=== PATIENT | female | born 1950 | race Caucasian/White ===

== ENCOUNTER 2024-11-04 10:33 | Observation (INO) ==
--- NOTE | 2024-11-04 10:45 | Emergency Department Note ---
HPI - General Adult General Chief complaint: Altered Mental Status Stated complaint: ALTERED MENTAL STATUS Time Seen by Provider: 11/04/24 10:38 Source: patient Mode of arrival: walk-in Limitations: no limitations History of Present Illness HPI narrative: This is a 74 year old female patient that presents to the ER with c/o per EMS patients family called them because when she got to the patients house she was confused. Per EMS when they got to the patient she was A&O. Patient denies any chest pain, SOB, back pain, abdominal pain, numbness, tingling, weakness, speech difficulties, visual difficulties or N/V/D. Patient c/o headache in the back of her head that radiates to her back of her neck Location: Reports head Radiation: Reports neck Severity: mild Quality: Reports aching Pain Consistency: Reports constant Relieving factors: Reports none Exacerbating factors: Reports none Associated symptoms: Reports confusion Treatments prior to arrival: Reports none Related Data Allergies Allergy/AdvReac Type Severity Reaction Status Date / Time Antifungal - Imidazole Allergy Verified 11/04/24 10:48 levofloxacin (From Levaquin) Allergy Verified 11/04/24 10:48 meloxicam Allergy Verified 11/04/24 10:41 meperidine (From Demerol) Allergy Hallucinati Verified 11/04/24 10:48 ng naproxen (From Aleve) Allergy Vomiting Verified 11/04/24 10:48 Review of Systems Status of ROS 10 or more systems reviewed and unremark able except as noted in history and below Constitutional Denies: fever, chills, change in weight, fatigue, malaise, night sweats or change in sleep pattern Eyes Denies: change in vision, blurry vision, blind spots, light sensitivity, eye discomfort, eye discharge or dry eyes Ears, nose, mouth, and throat Reports: neck pain and dry mouth; Denies: throat pain, throat swelling, difficulty swallowing, hoarseness, mouth pain, swelling of lips/tongue, bad breath, ear pain, ear discharge, change in hearing, tinnitus, vertigo, nasal discharge, nasal congestion, nose bleeds or post nasal drip Cardiovascular Denies: chest pain, palpitations, edema, swelling of feet/ankles, lightheadedness, shortness of breath with exertion or shortness of breath when lying down Respiratory Denies: shortness of breath, cough, wheezing, stridor, pain on inspiration or change in phlegm color Gastrointestinal Denies: abdominal pain, nausea, vomiting, coffee grounds in vomit, heartburn, diarrhea, constipation or bloating Genitourinary Denies: painful urination, urinary frequency, urinary urgency, urinary incontinence or blood in urine Musculoskeletal Reports: neck pain and extremity pain (hx of neuropathy); Denies: back pain, extremity swelling, joint pain or limited range of motion Integumentary/Breast Denies: rash, itching, redness, skin pain, skin tenderness or skin swelling Neurological Reports: headache and confusion; Denies: numbness in extremities, weakness in extremities, lack of coordination, dizziness, vertigo, behavioral changes, slurred speech, difficulty communicating thoughts, seizure-like activity, involuntary movements or other Psychiatric Denies: anxiety, mood swings, panic attacks, change in sleep pattern, hopelessness or loss of interest Endocrine Denies: excessive urination, excessive thirst, fatigue, cold intolerance, excessive sweating, flushing or heat intolerance Allergic/Immunologic Denies: hives, throat swelling, tongue swelling, facial swelling or wheezing PFSH PFSH Medical History (Updated 11/04/24 @ 10:45 by Almita Diaz RN) COVID Thyroid disorder HLD (hyperlipidemia) Breast cancer Surgical History (Updated 11/04/24 @ 10:45 by Almita Diaz RN) History of cholecystectomy History of bladder surgery History of bone marrow biopsy History of phacoemulsification of cataract with intraocular lens implantation H/O breast biopsy History of back surgery Hx of appendectomy History of hysterectomy History of tonsillectomy Exam Constitutional: normal general appearance and no apparent distress Vital Signs - 24 hr 11/04/24 10:33 Temperature 98.9 F Pulse Rate 100 H Respiratory Rate 16 Blood Pressure 160/70 Pulse Oximetry 97 Oxygen Delivery Me thod Room Air HENMT: normocephalic, head/scalp atraumatic, hearing grossly normal bilaterally, external ears normal, EACs normal, nasal mucous membranes normal, external nose normal, oral mucous membranes normal and oropharynx normal Eyes: PERRL, EOMs intact bilaterally, conjunctivae normal, no scleral icterus and no papilledema Neck/C-Spine: visual inspection normal, trachea midline, cervical spine nontender, cervical full ROM noted, supple, no meningeal signs and thyroid normal Lymph: no lymphadenopathy noted Chest: inspection of chest normal Respiratory: breath sounds equal bilaterally, normal respiratory effort, clear to auscultation bilaterally, no wheezes, no rales, no retractions, no use of accessory muscles and chest percussion normal Cardiovascular: normal heart rate noted, regular rhythm noted, no gallop, no rub, no murmur, no JVD, no clicks, peripheral pulses 2+ throughout, no bruits noted and no additional abnormal heart sounds Gastrointestinal: abdomen normal to inspection, abdomen soft to palpation, nontender to palpation, nontender to percussion, nondistended, normoactive bowel sounds, no hepatosplenomegaly, no masses, no pulsatile mass, no ascites and no hernia Genitourinary: no CVA tenderness Back/Pelvis: spine normal to inspection Extremities: normal to inspection, normal to palpation, no tenderness, full ROM, no joint enlargement and no deformity Neurology: media relations intern II-XII intact, no movement abnormality noted, no focal motor deficit noted, no sensory deficits noted, deep tendon reflexes 2+ bilaterally, gait normal, speech normal, coordination normal, no pronator drift noted, no fasciculations noted and GCS calculation - A&Ox name, place and month confused to year Psychiatry: mental status grossly normal, orientation abnormal, thought process normal, cooperative, affect normal, psychomotor activity normal and memory abnormal A&Ox name, place and month confused to year Skin: skin color normal Course Course Hospital Course: 1156: VSS, no s/s of acute distress noted. Due to patient had witnessed AMS by family earlier will admit patient to the medical floor for further evaluation and treatment Vital Signs Vital signs: Vital Signs Temperature 98.9 F 11/04/24 10:33 Pulse Rate 100 H 11/04/24 10:33 Respiratory Rate 16 11/04/24 10:33 Blood Pressure 160/70 11/04/24 10:33 Pulse Oximetry 97 11/04/24 10:33 Oxygen Delivery Method Room Air 11/04/24 10:33 Temperature 98.9 F 11/04/24 10:33 Pulse Rate 100 H 11/04/24 10:33 Respiratory Rate 16 11/04/24 10:33 Blood Pressure 160/70 11/04/24 10:33 Pulse Oximetry 97 11/04/24 10:33 Oxygen Delivery Method Room Air 11/04/24 10:33 Medical Decision Making Differential Diagnosis Differential Diagnosis: TIA, drug intolerance, viral illness Medical Records Medical records reviewed: Yes I reviewed the patient's medical records Lab Data Lab results reviewed: Yes I reviewed the patient's lab results Labs: Lab Results 11/04/24 Range/Units 11:30 WBC 5.9 (4.3-9.3) K/uL RBC 3.3 L (4.00-5.50) M/uL Hgb 10.6 L (12.5-15.8) gm/dL Hct 31.9 L (35.9-46.7) % MCV 98.2 H (81.0-93.7) fl MCH 32.7 H (27.6-32.2) pg MCHC 33.3 (33.1-35.3) g/dl RDW 16.0 H (11.4-14.2) % Plt Count 175 (152-353) K/uL MPV 7.1 (6.9-10.8) fl Gran % 66.7 (47.8-71.3) % Lymph % (Auto) 10.9 L (20.0-43.0) % [place] % (Auto) 19.6 H (3.6-9.8) % Eos % (Auto) 2.3 (0.4-2.8) % Baso % (Auto) 0.5 (0.1-0.85) Lymph # (Auto) 0.6 L (1.1-3.1) [place] # (Auto) 1.2 (1.1-3.1) Eos # (Auto) 0.1 (0.0-0.2) Baso # (Auto) 0.0 (0.0-0.1) Absolute Gran (auto) 3.9 (2.3-6.0) Sodium 135 L (136-145) mmol/L Potassium 5.5 H (3.6-5.2) mmol/L Chloride 100.0 (98-107) mmol/L Carbon Dioxide 25 (21-32) mmol/L Anion Gap 10.0 (4-14) mEq/L BUN 23 H (7-18) mg/dL Creatinine 1.1 (0.6-1.3) mg/dL Estimated GFR 53.1 (>59.9) Glucose 79 (70-110) mg/dL Calcium 9.5 (8.5-10.1) mg/dL Total Bilirubin 0.42 (0.0-1.0) mg/dL AST 16 (15-37) U/L ALT 17 L (30-65) U/L Alkaline Phosphatase 112 (50-136) U/L Troponin I High Sens <4.00 L (4.0-60.4) ng/L Total Protein 7.2 (6.4-8.2) g/dL Albumin 4.0 (3.4-5.0) g/dL Imaging Data CT scan - head: Attestation: I have reviewed the pertinent imaging results. ECG Data Attestation: I have reviewed the pertinent ECG results. Discharge Plan Discharge Patient Disposition: Admitted As Observation Condition: Stable Clinical Impression: Altered mental status, TIA (transient ischemic attack) Time of Disposition: 11:58
[2024-11-04 11:41] LABS: Basophils%(Percent) Auto 0.5 (0.1-0.85); Eosinophils#(Absolute)Auto 0.1 (0.0-0.2); Eosinophils%(Percent) Auto 2.3 % (0.4-2.8); Granulocytes % - Auto 66.7 % (47.8-71.3); Granulocytes#(Absolute)- Auto 3.9 (2.3-6.0); Hematocrit 31.9 % (35.9-46.7); Mean Corpuscular Volume 98.2 fl (81.0-93.7); Monocytes #(Absolute)- Auto 1.2 (1.1-3.1); Monocytes %(Percent)- Auto 19.6 % (3.6-9.8); Platelet Count 175 K/uL (152-353); White Blood Count 5.9 K/uL (4.3-9.3)
[2024-11-04 11:47] LABS: Potassium 5.5 mmol/L (3.6-5.2)
[2024-11-04] MEDS: ASPIRIN 81 MG TAB.CHEW PO ONE (12:20)
[2024-11-04 12:42] LABS: Specific Gravity Urine 1.015 (1.001-1.035); Urine Appearance CLEAR (CLEAR); Urine Blood NEGATIVE (NEG - TRACE); Urine Color YELLOW (STRAW/YELL.)
[2024-11-04 12:43] LABS: PH BODY FLUID EXCP BLOOD 6.5 (5 - 9); Urine Urobilinogen Normal (NORMAL)
[2024-11-04 12:48] LABS: INR 1.03
[2024-11-04] MEDS ORDERED: bisacodyL 10 MG SUPP.RECT PR PRN (13:03)
[2024-11-04] MEDS ORDERED: MAGNESIUM, ALUMINUM HYDROXIDE 30 ML ORAL.SUSP PO PRN (13:03)
[2024-11-04] MEDS: 0.9 % SODIUM CHLORIDE 1000 ML 1,000 ML IV SCH (14:35)
[2024-11-04] MEDS: ACETAMINOPHEN 500 MG TABLET PO PRN (16:15)
[2024-11-04] MEDS: HYDROXYCHLOROQUINE SULFATE 200 MG TABLET PO SCH (20:12)
[2024-11-04] MEDS: COLCHICINE 0.6 MG TABLET PO SCH (20:12)
[2024-11-04] MEDS: ALLOPURINOL 100 MG TABLET PO SCH (20:12)
[2024-11-05 06:27] LABS: Basophils%(Percent) Auto 0.8 (0.1-0.85); Eosinophils#(Absolute)Auto 0.1 (0.0-0.2); Eosinophils%(Percent) Auto 2.7 % (0.4-2.8); Granulocytes % - Auto 54.2 % (47.8-71.3); Granulocytes#(Absolute)- Auto 1.6 (2.3-6.0); Mean Corpuscular Volume 96.1 fl (81.0-93.7); Monocytes #(Absolute)- Auto 0.7 (1.1-3.1); Monocytes %(Percent)- Auto 22.7 % (3.6-9.8); Platelet Count 148 K/uL (152-353)
[2024-11-05 06:32] LABS: Potassium 4.1 mmol/L (3.6-5.2)
[2024-11-05 08:11] VITALS: BP 154/65; PULSE 100; RESP 20; TEMP 98.8
[2024-11-05] MEDS: METOPROLOL SUCCINATE 100 MG TAB.ER.24H PO SCH (08:23)
[2024-11-05] MEDS: DULOXETINE HCL 30 MG CAPSULE.DR PO SCH (08:23)
[2024-11-05] MEDS: ASPIRIN 81 MG TAB.CHEW PO SCH (08:24)
--- NOTE | 2024-11-05 09:05 | Short Stay Summary ---
H&P: HPI History of Present Illness Chief complaint: AMS, TIA Narrative: Pt with forgetfulness and not answering phone yesterday. Has been feeling poorly for the past week with some concern about possible flu. After family arrived at her home, she was transported to the ER. Evaluation consistent with dehydration and UTI. Mental status was steadily improving during transport and while in ER. Review of Systems Status of ROS 10 or more systems reviewed and unremark able except as noted in history and below Constitutional Denies: fever, chills, change in weight, fatigue, malaise, night sweats or change in sleep pattern Eyes Denies: change in vision, blurry vision, blind spots, light sensitivity, eye discomfort, eye discharge or dry eyes Ears, nose, mouth, and throat Reports: neck pain and dry mouth; Denies: throat pain, throat swelling, difficulty swallowing, hoarseness, mouth pain, swelling of lips/tongue, bad breath, ear pain, ear discharge, change in hearing, tinnitus, vertigo, nasal discharge, nasal congestion, nose bleeds or post nasal drip Cardiovascular Denies: chest pain, palpitations, edema, swelling of feet/ankles, lightheadedness, shortness of breath with exertion or shortness of breath when lying down Respiratory Denies: shortness of breath, cough, wheezing, stridor, pain on inspiration or change in phlegm color Gastrointestinal Denies: abdominal pain, nausea, vomiting, coffee grounds in vomit, heartburn, diarrhea, constipation, bloating or difficulty swallowing Genitourinary Denies: painful urination, urinary frequency, urinary urgency, urinary incontinence or blood in urine Musculoskeletal Reports: neck pain and extremity pain (hx of neuropathy); Denies: back pain, extremity swelling, joint pain or limited range of motion Integumentary/Breast Denies: rash, itching, redness, skin pain, skin tenderness or skin swelling Neurological Reports: headache and confusion; Denies: numbness in extremities, weakness in extremities, lack of coordination, dizziness, vertigo, behavioral changes, slurred speech, difficulty communicating thoughts, seizure-like activity, involuntary movements or other Psychiatric Denies: anxiety, mood swings, panic attacks, change in sleep pattern, hopelessness or loss of interest Endocrine Denies: excessive urination, excessive thirst, fatigue, cold intolerance, excessive sweating, flushing or heat intolerance Allergic/Immunologic Denies: hives, throat swelling, tongue swelling, facial sw elling or wheezing PFSH PFS Medical History (Updated 11/05/24 @ 13:13 by Miguel Breen MD) COVID Thyroid disorder HLD (hyperlipidemia) Breast cancer Surgical History (Updated 11/04/24 @ 10:45 by Almita Diaz, MAGEN) History of cholecystectomy History of bladder surgery History of bone marrow biopsy History of phacoemulsification of cataract with intraocular lens implantation H/O breast biopsy History of back surgery Hx of appendectomy History of hysterectomy History of tonsillectomy Social History What is your current living situation: I presently have a place to live Problems where you live: no known problems Highest level of school completed/degree received: College Meds Home Medications and Allergies Home Medications Medication Instructions Recorded Confirmed Type REDIMIND 11/04/24 History VIVISCAL 11/04/24 History acetaminophen 500 mg tablet 1,000 mg PO BID 11/04/24 11/04/24 History allopurinol 100 mg tablet 100 mg PO BID 11/04/24 11/04/24 History aspirin 81 mg tablet,delayed 81 mg PO BID 11/04/24 11/04/24 History release (Nghia Low Dose Aspirin) biotin 2,500 mcg tablet 5 mg PO DAILY 11/04/24 11/04/24 History calcium 600 mg (as 1 tab PO DAILY 11/04/24 11/04/24 History carbonate)-vitamin D3 10 mcg (400 unit) tablet (Calcium 600 + D(3)) coQ10 (ubiquinol) 100 mg capsule 100 mg PO DAILY 11/04/24 11/04/24 History (Qunol Manpreet CoQ10) colchicine 0.6 mg tablet 0.6 mg PO BID 11/04/24 11/04/24 History duloxetine 30 mg capsule,delayed 30 mg PO BEDTIME 11/04/24 11/04/24 History release gabapentin 400 mg capsule 400 mg PO TID PRN NEUROPATHY 11/04/24 11/04/24 History glucosamine sulfate 750 mg tablet 750 mg PO BID 11/04/24 11/04/24 History (Evon) hydroxychloroquine 200 mg tablet 200 mg PO BID 11/04/24 11/04/24 History levothyroxine 88 mcg tablet 88 mcg PO QDAC 11/04/24 11/04/24 History (Synthroid) metoprolol succinate 100 mg 100 mg PO DAILY 11/04/24 11/04/24 History tablet,extended release 24 hr potassium chloride 10 mEq meq PO DAILY 11/04/24 History tablet,extended release progesterone micronized 100 mg 100 mg PO BEDTIME 11/04/24 11/04/24 History capsule rosuvastatin 20 mg tablet 20 mg PO .COMPLEX 11/04/24 11/04/24 History sulfasalazine 500 mg tablet 0.5 g PO BID 11/04/24 11/04/24 History torsemide 20 mg tablet 20 mg PO DAILY 11/04/24 11/04/24 History turmeric root extract 500 mg 500 mg PO BID 11/04/24 11/04/24 History capsule (Curcuplex-95) vit C 250 mg-vit E 90 mg-zinc 40 1 tab PO DAILY 11/04/24 11/04/24 History mg-copper 1 cw-tpjxas-kcubau capsule (PreserVision AREDS-2) vitamin A 2,500 unit-vit C 100 1 cap PO DAILY 11/04/24 11/04/24 History mg-biotin 2,500 xpc-tgdw-uhnlyo capsule (Rpqt-Mffz-Vafp (vit A,C-qchhsi-Bi-Cu)) cefdinir 300 mg capsule 300 mg PO BID UTI #6 caps 11/05/24 Rx Allergies Allergy/AdvReac Type Severity Reaction Status Date / Time Antifungal - Imidazole Allergy Verified 11/04/24 10:48 levofloxacin (From Levaquin) Allergy Verified 11/04/24 10:48 meloxicam Allergy Verified 11/04/24 10:41 meperidine (From Demerol) Allergy Hallucinati Verified 11/04/24 10:48 ng naproxen (From Aleve) Allergy Vomiting Verified 11/04/24 10:48 Exam Constitutional: normal general appearance, no apparent distress, average body habitus, no limitations and alert Vital Signs - 24 hr 11/04/24 10:33 11/04/24 11:00 11/04/24 11:45 Temperature 98.9 F Pulse Rate 100 H 99 H 96 H Pulse Rate [Right] Respiratory Rate 16 17 18 Blood Pressure 160/70 145/61 144/58 Blood Pressure [Ri ght Arm] Pulse Oximetry 97 95 96 Oxygen Delivery Me thod Room Air Room Air Room Air 11/04/24 12:15 11/04/24 12:45 11/04/24 13:03 Temperature 98.9 F 98.2 F Pulse Rate 97 H 97 H Pulse Rate [Right] 93 H Respiratory Rate 16 16 21 Blood Pressure 148/56 148/56 Blood Pressure [Ri ght Arm] 151/55 Pulse Oximetry 99 99 95 Oxygen Delivery Me thod Room Air Room Air 11/04/24 14:16 11/04/24 16:00 11/04/24 20:00 Temperature 99.6 F 98.0 F Pulse Rate Pulse Rate [Right] 93 H 92 H 89 Respiratory Rate 21 19 16 Blood Pressure Blood Pressure [Ri ght Arm] 137/52 148/57 Pulse Oximetry 95 95 96 Oxygen Delivery Me thod Room Air Room Air Room Air 11/05/24 00:00 11/05/24 04:00 11/05/24 08:00 Temperature 98.9 F 98.4 F 98.8 F Pulse Rate Pulse Rate [Right] 94 H 104 H 100 H Respiratory Rate 20 18 20 Blood Pressure Blood Pressure [Ri ght Arm] 143/57 135/60 154/65 Pulse Oximetry 96 97 93 L Oxygen Delivery Me thod Room Air Room Air Room Air 11/05/24 08:23 Temperature Pulse Rate 100 H Pulse Rate [Right] Respiratory Rate Blood Pressure 154/65 Blood Pressure [Ri ght Arm] Pulse Oximetry Oxygen Delivery Me thod HENMT: normocephalic, head/scalp atraumatic, hearing grossly normal bilaterally and external ears normal Eyes: PERRL, EOMs intact bilaterally, conjunctivae normal, normal visual wan by confrontation and periorbital findings normal Neck/C-Spine: visual inspection normal, trachea midline and cervical full ROM noted Respiratory: breath sounds equal bilaterally, normal respiratory effort and clear to auscultation bilaterally Cardiovascular: normal heart rate noted, regular rhythm noted and no murmur Gastrointestinal: abdomen soft to palpation, nontender to palpation, nondistended and normoactive bowel sounds Back/Pelvis: thoracic spine ROM normal and lumbar spine ROM normal Extremities: abnormal to inspection (chronic skin changes to BLE), normal to palpation, tenderness noted (BLE) and full ROM Neurology: registered nurse float pool II-XII intact, no focal motor deficit noted, speech normal, coordination normal, no fasciculations noted and GCS normal Psychiatry: mental status grossly normal, oriented x3, thought process normal, cooperative, affect normal, psychomotor activity normal and memory normal Assessment and Plan Assessment and Plan (1) Acute urinary tract infection: Code(s): N39.0 - Urinary tract infection, site not specified (2) Dehydration: Code(s): E86.0 - Dehydration (3) Acute hyponatremia: Code(s): E87.1 - Hypo-osmolality and hyponatremia (4) Acute hyperkalemia: Code(s): E87.5 - Hyperkalemia (5) Acquired hypothyroidism: Code(s): E03.9 - Hypothyroidism, unspecified (6) Idiopathic neuropathy: Code(s): G60.9 - Hereditary and idiopathic neuropathy, unspecified Plan Admitted for IVFs, antibiotics, and close monitoring of labs and vitals. Results Labs Labs: CBC WBC 3.0 K/uL (4.3-9.3) L 11/05/24 05:50 RBC 2.8 M/uL (4.00-5.50) L 11/05/24 05:50 Hgb 9.4 gm/dL (12.5-15.8) L 11/05/24 05:50 Hct 27.0 % (35.9-46.7) L 11/05/24 05:50 MCV 96.1 fl (81.0-93.7) H 11/05/24 05:50 MCH 33.3 pg (27.6-32.2) H 11/05/24 05:50 MCHC 34.7 g/dl (33.1-35.3) 11/05/24 05:50 RDW 15.6 % (11.4-14.2) H 11/05/24 05:50 Plt Count 148 K/uL (152-353) L 11/05/24 05:50 MPV 7.2 fl (6.9-10.8) 11/05/24 05:50 Gran % 54.2 % (47.8-71.3) 11/05/24 05:50 Lymph % (Auto) 19.6 % (20.0-43.0) L 11/05/24 05:50 [place] % (Auto) 22.7 % (3.6-9.8) H 11/05/24 05:50 Eos % (Auto) 2.7 % (0.4-2.8) 11/05/24 05:50 Baso % (Auto) 0.8 (0.1-0.85) 11/05/24 05:50 Lymph # (Auto) 0.6 (1.1-3.1) L 11/05/24 05:50 [place] # (Auto) 0.7 (1.1-3.1) L 11/05/24 05:50 Eos # (Auto) 0.1 (0.0-0.2) 11/05/24 05:50 Baso # (Auto) 0.0 (0.0-0.1) 11/05/24 05:50 Absolute Gran (auto) 1.6 (2.3-6.0) L 11/05/24 05:50 BMP Sodium 139 mmol/L (136-145) 11/05/24 05:50 Potassium 4.1 mmol/L (3.6-5.2) 11/05/24 05:50 Chloride 104.0 mmol/L (98-107) 11/05/24 05:50 Carbon Dioxide 25 mmol/L (21-32) 11/05/24 05:50 Anion Gap 10.0 mEq/L (4-14) 11/05/24 05:50 BUN 14 mg/dL (7-18) 11/05/24 05:50 Creatinine 0.8 mg/dL (0.6-1.3) 11/05/24 05:50 Estimated GFR 77.8 (>59.9) 11/05/24 05:50 Glucose 95 mg/dL (70-110) 11/05/24 05:50 Calcium 8.8 mg/dL (8.5-10.1) 11/05/24 05:50 Total Bilirubin 0.39 mg/dL (0.0-1.0) 11/05/24 05:50 AST 10 U/L (15-37) L 11/05/24 05:50 ALT 14 U/L (30-65) L 11/05/24 05:50 Alkaline Phosphatase 89 U/L (50-136) 11/05/24 05:50 Total Protein 6.1 g/dL (6.4-8.2) L 11/05/24 05:50 Albumin 3.3 g/dL (3.4-5.0) L 11/05/24 05:50 Cardiac Enzymes Troponin I High Sens <4.00 ng/L (4.0-60.4) L 11/04/24 11:30 Liver Function Total Bilirubin 0.39 mg/dL (0.0-1.0) 11/05/24 05:50 AST 10 U/L (15-37) L 11/05/24 05:50 ALT 14 U/L (30-65) L 11/05/24 05:50 Alkaline Phosphatase 89 U/L (50-136) 11/05/24 05:50 Total Protein 6.1 g/dL (6.4-8.2) L 11/05/24 05:50 Albumin 3.3 g/dL (3.4-5.0) L 11/05/24 05:50 Urine Urine Color Yellow (STRAW/YELL.) 11/04/24 12:30 Urine Appearance Clear (CLEAR) 11/04/24 12:30 Ur Specific [place] 1.015 (1.001-1.035) 11/04/24 12:30 Urine Protein Negative (NEGATIVE) 11/04/24 12:30 Urine Glucose (UA) Normal (NORMAL) 11/04/24 12:30 Urine Ketones Negative (NEGATIVE) 11/04/24 12:30 Urine Occult Blood Negative (NEG - TRACE) 11/04/24 12:30 Urine Nitrite Negative (NEGATIVE) 11/04/24 12:30 Urine Bilirubin Negative (NEGATIVE) 11/04/24 12:30 Urine Urobilinogen Normal (NORMAL) 11/04/24 12:30 Ur Leukocyte Esterase Negative (NEGATIVE) 11/04/24 12:30 DS: Providers Provider Date of admission: 11/04/24 12:16 Primary care physician: Hetal Bains MD Admitting clinician: Lima Sepulveda Attending physician on admission: Miguel Breen Attending physician on discharge: Miguel Breen Discharging clinician: Miguel Breen Anticipated date of discharge: 11/05/24 DS: Summary Hospital Course Hospital Course: Family at bedside reports she has returned to baseline function. Pt requesting to go home and tolerating PO intake. Vitals stable. Labs consistent with dilutional pancytopenia. Electrolytes have normalized and azotemia resolved. Status at Discharge Functional status at discharge: independent ambulation Overall status at discharge: patient is back to baseline Time Spent with Patient Time attestation: Total time spent providing and/or coordinating discharge services: Time spent: less than 30 minutes Discharge Plan Discharge Disposition: Home, Self-Care Condition: Stable Discharge Medications: New cefdinir 300 mg capsule 300 mg PO BID Qty: 6 0RF Continued levothyroxine [Synthroid] 88 mcg tablet 88 mcg PO QDAC Patient Comments: TAKE ONE TABLET BY MOUTH EARLY IN THE MORNING ON AN EMPTY STOMACH BEFORE BREAKFAST metoprolol succinate 100 mg tablet extended release 24 hr 100 mg PO DAILY Patient Comments: TAKE ONE TABLET BY MOUTH ONCE DAILY torsemide 20 mg tablet 20 mg PO DAILY Patient Comments: TAKE ONE TABLET BY MOUTH EVERY DAY FOR WATER PILL Rx Instructions: PATIENT STATED THAT SHE TAKES EVERYTHING HER LIST, BUT THIS HAS NOT BEEN FILLED SINCE 07/13; MAYBE NEEDED BECAUSE THE POTASSIUM STATES TO TAKE ONLY WHEN TORSEMIDE IS TAKEN. potassium chloride 10 mEq tablet extended release PO DAILY Patient Comments: TAKE ONE TABLET BY MOUTH ONCE DAILY (TAKE WITH TORSEMIDE 20MG) rosuvastatin 20 mg tablet 20 mg PO .COMPLEX Patient Comments: TAKE ONE TABLET BY MOUTH AT BEDTIME FOR CHOLESTEROL Rx Instructions: 20 mg orally TAKE WEDNESDAY, WEDNESDAY, AND WEDNESDAY; gabapentin 400 mg capsule 400 mg PO TID PRN (Reason: NEUROPATHY) Patient Comments: TAKE ONE CAPSULE BY MOUTH THREE TIMES DAILY duloxetine 30 mg capsule,delayed release(DR/EC) 30 mg PO BEDTIME Patient Comments: TAKE ONE CAPSULE BY MOUTH AT BEDTIME colchicine 0.6 mg tablet 0.6 mg PO BID Patient Comments: TAKE ONE TABLET BY MOUTH TWICE DAILY allopurinol 100 mg tablet 100 mg PO BID Patient Comments: TAKE 1 TABLET BY MOUTH TWICE DAILY hydroxychloroquine 200 mg tablet 200 mg PO BID Patient Comments: TAKE ONE TABLET BY MOUTH TWICE DAILY aspirin [Nghia Low Dose Aspirin] 81 mg tablet,delayed release (DR/EC) 81 mg PO BID acetaminophen 500 mg tablet 1,000 mg PO BID progesterone micronized 100 mg capsule 100 mg PO BEDTIME Patient Comments: TAKE ONE CAPSULE BY MOUTH AT BEDTIME sulfasalazine 500 mg tablet 0.5 g PO BID Patient Comments: TAKE 1 TAB BY MOUTH DAILY FOR 7 DAYS TAKE 1 TAB TWICE DAILY FOR 7 DAYS TAKE 1 TAB THREE TIMES DAILY FOR 7 DAYS TAKE 2 TABS TWICE DAILY THEREAFTER PreserVision AREDS-2 250-90-40-1 mg capsule 1 tab PO DAILY Ecih-Fzkq-Obla(vit A,C-biotin) 2,500 unit-100 mg-2,500 mcg capsule 1 cap PO DAILY calcium carbonate-vitamin D3 [Calcium 600 + D(3)] 600 mg-10 mcg (400 unit) tablet 1 tab PO DAILY coQ10 (ubiquinol) [Qunol Manpreet CoQ10] 100 mg capsule 100 mg PO DAILY biotin 2,500 mcg tablet 5 mg PO DAILY VIVISCAL REDIMIND turmeric root extract [Curcuplex-95] 500 mg capsule 500 mg PO BID glucosamine sulfate [Evon] 750 mg tablet 750 mg PO BID Rx Instructions: administer with meals Discharge Orders: Discharge Order (Routine); Ordered 11/05/24 Ordered By: Miguel Breen Activity: increase activity as tolerated Diet: advance to your usual diet Interventions: Discharge Assessment Last Done: 11/05/24 10:11 MED/SURG & ICU Observation Charge Sheet Last Done: 11/04/24 12:16 Patient Instructions: Urinary Tract Infection in Older Adults (GEN) Forms: Portal/Health Info Access Inst Follow-Ups: CARHAC [Other] Discharge Date/Time: 11/05/24 11:09
[2024-11-05] MEDS: CEFTRIAXONE SODIUM 1 GM in 0.9 % SODIUM CHLORIDE MB+ 50 ML IV ONE (09:55)
== END 2024-11-05 11:09 | disposition home or self-care (01) ==
LOC: ED 10:33 → MS 10:33
PROVIDERS: ADMIT Family Medicine; ATTEND Family Medicine